=== PATIENT | male | born 1935 | race Caucasian/White ===

== ENCOUNTER 2016-08-26 09:50 | Observation (INO) | payer BC ==
--- NOTE | ~2016-08-26 | HP ---
History And Physical [address] [place]. [address] NAME: PIEDAD CARTWRIGHT : 37 STATUS : ADM Zach PAT#: [id number] AGE: 81 ADM/REG DATE : 08/26/16 MR#: [id number] REPORT SERV DATE: 08/26/16 DICTATED BY: AJAY LOYA DATE: 08/26/16 REPORT STATUS : Draft TRANSCRIBED BY: MODL DATE: 08/26/16 DATE OF ADMISSION: 08/26/2016 REASON FOR ADMISSION: Symptomatic bradycardia. PRIMARY PRODUCTION UNDERWRITER: Dr. Gen Massey. HISTORY OF PRESENT ILLNESS: Mr. Cartwright is a pleasant 81-year-old man with a history of CAD status post three-vessel CABG (2010), significant carotid artery disease, status post stenting (2013), mild ischemic cardiomyopathy (LVEF=40%), history of bradycardia, on metoprolol that had since resolved off metoprolol, paroxysmal atrial fibrillation (on Plavix monotherapy), and chronic left bundle-branch block, who presents to [facility] today with symptoms of increased fatigue as well as progressive limitation in his day-to-day activities over the past many weeks. Per him and his , this may have started several months ago, but has become so significant that he is now unable to walk even 100 feet without getting significantly dyspneic. When he is at rest, however, he has no symptoms in specific. He denies having any chest pains, pressures, dizziness, or loss of consciousness ever. He has been taking his medications which include only pravastatin and Plavix. His last dose of Plavix, however, was on Tuesday evening. He also is currently n.p.o. as he anticipated a procedure today. He otherwise has no complaints. ALLERGIES: DOPAMINE. PAST MEDICAL HISTORY: As above. SOCIAL HISTORY: The patient lives at home with his and is fully functional/independent under normal circumstances. He denies drinking alcohol, smoking, or doing drugs. FAMILY HISTORY: Negative for cardiovascular disease. REVIEW OF SYSTEMS: As above, all other systems otherwise negative. HOME MEDICATIONS: Plavix 75 mg p.o. daily, pravastatin 20 mg p.o at bedtime. PHYSICAL EXAMINATION: VITAL SIGNS: Blood pressure 130/54, pulse 30-40 (ventricular escape rhythm), temperature 97.0. GENERAL: Well developed, well nourished, no acute distress. NEURO: Awake, alert and oriented x3; no focal deficits, appropriate mood. HEENT: Moist mucous membranes, anicteric sclerae, no nasal discharge. NECK: No JVD, no carotid bruit. LUNGS: Clear to auscultation bilaterally, no wheezes, rales or rhonchi. CV: Bradycardic, regular, normal S1, S2. Distant heart sounds otherwise. ABD: Soft, non-tender, non-distended, no rebound or guarding. EXT: No pitting edema, normal distal pulses. History And Physical [address] [address] NAME: PIEDAD CARTWRIGHT : 36 STATUS : ADM Zach PAT#: [id number] AGE: 81 ADM/REG DATE : 08/26/16 MR#: [id number] REPORT SERV DATE: 08/26/16 DICTATED BY: AJAY LOYA DATE: 08/26/16 REPORT STATUS : Draft TRANSCRIBED BY: CAITLIN DATE: 08/26/16 SKIN: Warm, dry and intact; no rash. PERTINENT TEST FINDINGS: EKG with probable ventricular escape rhythm (has a baseline left bundle-branch block), with a rate of 37 beats per minute, no discernible P waves, and no obvious ischemic changes. Chest x-ray with right basilar atelectasis/consolidation. White blood cell count 7.8, hemoglobin 13, platelets 226. BNP 532, potassium 4.5, creatinine 1.8; up from 1.17, magnesium 2.1, troponin 0.06. IMPRESSION AND PLAN: Mr. Cartwright is a pleasant 81-year-old man with a history of coronary artery disease, status post coronary artery bypass graft, carotid artery stenosis, status post stenting, paroxysmal atrial fibrillation, and bradycardia on metoprolol that had resolved off metoprolol, who presents now with progressive fatigue as well as limitations in his day-to-day activities in the setting of ventricular escape rhythm in the 30s. Accordingly, I have the following recommendations by problem below: 1. Symptomatic bradycardia-I have consulted Electrophysiology to evaluate him for implantation of a permanent pacemaker today. He held his Plavix on Tuesday night and has been n.p.o., therefore he could get the procedure today if we can accommodate this. He is otherwise hemodynamically stable. I will have pads placed at the bedside should this become a need while here. He will otherwise be on telemetry monitoring. He is not on any fernanda blockers and I do not see any reversible causes of his bradycardic rhythm. This is likely progression of his known conduction disease. 2. PAF-on Plavix. Plavix currently on hold for symptomatic bradycardia. 3. Coronary artery disease, status post coronary artery bypass graft-without chest pains, pressures or anginal equivalents as far as I can tell, stable, continue statin as written. 4. Ischemic cardiomyopathy-mild as of 2011 echo. We will recheck echo this admission. Consider diuresis following pacemaker implantation. 5. Acute kidney injury-likely due to poor perfusion from bradycardia. We will follow renal parameters following pacemaker and potentially diurese him as per previous problem. VR/MODL Ajay Loya MD / [id number] CC: Ajay Loya MD
--- NOTE | ~2016-08-26 | CN ---
Consultation Report [facility] [address] [place]. [address] NAME: PIEDAD CARTWRIGHT : 37 STATUS : ADM Zach PAT#: [id number] AGE: 81 ADM/REG DATE : 08/26/16 MR#: [id number] REPORT SERV DATE: 08/26/16 DICTATED BY: DEE SINGH DATE: 08/26/16 REPORT STATUS : Draft TRANSCRIBED BY: MODL DATE: 08/26/16 EP CONSULT DATE OF CONSULTATION: 08/26/2016 INDICATION: Junctional rhythm, bradycardia. HISTORY OF PRESENT ILLNESS: The patient is an 81-year-old white male with a history of coronary artery disease and previous CAB in 2010 with carotid artery disease, status post stenting in 2013. He has ischemic cardiomyopathy with an LVEF of 40% chronically. He has had bradycardia in the past. Postoperatively, he had atrial fibrillation, but states he has been in sinus rhythm for the past several years. He has underlying left bundle branch block pattern. He states since the holidays he has had progressive fatigue. He has lower extremity edema, which has been more prominent over the past year. His and family state that he has been most of the time sitting in a chair. He rarely is able to get up and do any work around the house or on his land, although occasionally he will get out and [employer]. CURRENT HOME MEDICATIONS: Clopidogrel 75 a day and pravastatin 20 a day. ALLERGIES OR INTOLERANCES: Dopamine (nausea and vomiting). SOCIAL HISTORY: Lives at home with his . Negative for alcohol or tobacco use. FAMILY HISTORY: Negative for cardiac disease. PAST MEDICAL HISTORY/REVIEW OF SYSTEMS: History of hyperlipidemia, chronic left bundle branch block, paroxysmal atrial fibrillation with a ChadVasc score of 3. He has been assigned a diagnostic-category persistent atrial fibrillation with the most recent cardioversion attempted in August 2011, although it is not clear to me whether this means that he is in sinus rhythm most of the time, which would appear to be the case based on his last Holter in 2013 or whether he has progressed to more chronic atrial fibrillation. We will plan IV pacer placement. Whether or not he needs an atrial lead can be determined at the time of study. Risks and benefits have been discussed with the family. FAHAD Dee Singh M.D. Consultation Report [address]. [address] NAME: PIEDAD CARTWRIGHT : 37 STATUS : ADM Zach PAT#: [id number] AGE: 81 ADM/REG DATE : 08/26/16 MR#: [id number] REPORT SERV DATE: 08/26/16 DICTATED BY: DEE SINGH DATE: 08/26/16 REPORT STATUS : Draft TRANSCRIBED BY: MODL DATE: 08/26/16 / [id number] CC: MD Yoanna Kauffman M.D. [facility]
[~2016-08-26 09:50] MED LIST: ADVIL PO; AFRIN15 NAS; AMOXIL500 MG PO; ASA5GR PO; ASAB PO; BACTRONASA NAS; CIP5 PO; FLOVENT110 INH; LOP25 PO; MAALOX PO; MULTIPLE VIT PO; PLAVIX PO; PRAVAC PO; PROVHFA INH; VITAMIN D1000 UNI1 PO; VITC500 PO; VITE PO; XARELTO; ZOCOR20 PO
[2016-08-26 09:57] LABS: BASOPHILS 0.1 %; BASOPHILS ABSOLUTE 0.01 10/3/uL (0.0-0.16); EOSINOPHILS 2.2 %; EOSINOPHILS ABSOLUTE 0.17 10/3/uL (0.0-0.53); IMMATURE GRANULOCYTES 0.1 %; IMMATURE GRANULOCYTES ABSOLUTE 0.01 10/3/uL (0.0-0.11); LYMPHOCYTES 18.6 %; LYMPHOCYTES ABSOLUTE 1.45 10/3/uL (0.67-4.30); MEAN CORPUS HGB CONC 33.4 g/dL (32.0-36.0); MEAN CORPUSCULAR HEMOGLOB 29.8 pg (26.0-34.0); MEAN CORPUSCULAR VOLUME 89.2 fL (80-100); MEAN PLATELET VOLUME 8.8 fL (9.2-13.0); MONOCYTES 13.3 %; MONOCYTES ABSOLUTE 1.04 10/3/uL (0.21-1.20); NEUTROPHILS 65.7 %; NEUTROPHILS ABSOLUTE 5.12 10/3/uL (2.02-8.40); PLATELET COUNT 226 10/3/uL (150-400); RBC DISTRIBUTION WIDTH 14.4 % (12.0-16.0); RED CELL COUNT 4.36 10/6/uL (4.7-6.1); WHITE BLOOD CELLS 7.8 10/3/uL (4.5-10.5)
[2016-08-26 09:59] LABS: HEMATOCRIT 38.9 % (40.0-51.0); MANUAL DIFF NO %
[2016-08-26 10:05] LABS: INTERNATIONAL NORMAL RATI 1.5 UNITS (-)
[2016-08-26 10:06] LABS: PARTIAL THROMBO TIME 34.6 SEC (22.5-37.2)
[2016-08-26 10:14] LABS: A/G RATIO 0.8 (0.7-1.9); ALBUMIN 3.7 G/DL (3.5-5.0); BUN (BLOOD UREA NITROGEN) 34 MG/DL (6-23); CHLORIDE, SERUM 102 MMOL/L (96-112); CO2 (CARBON DIOXIDE) 26 MMOL/L (24-34); GLOBULIN 4.7 G/DL (2.5-4.1); POTASSIUM, SERUM 4.5 MMOL/L (3.5-5.3); SGPT(ALT) 21 U/L (5-65); SODIUM, SERUM 137 MMOL/L (135-148); TOTAL PROTEIN 8.4 G/DL (6.0-8.5)
[2016-08-26 10:16] LABS: CREATININE 1.81 MG/DL (0.70-1.30); GFR AFRICAN AMERICAN 40 ML/MIN (>=60); GFR NON AFRICAN AMERICAN 35 ML/MIN (>=60); GLUCOSE, SERUM 83 MG/DL (60-99)
[2016-08-26 10:17] LABS: ALKALINE PHOSPHATASE 121 U/L (45-117); SGOT(AST) 29 U/L (5-40); TOTAL BILIRUBIN 2.1 MG/DL (0-1.2); TROPONIN I 0.06 NG/ML (<0.05)
[2016-08-27 05:13] LABS: CALCIUM, SERUM 8.8 MG/DL (8.5-10.4); CHLORIDE, SERUM 107 MMOL/L (96-112); CREATININE 1.55 MG/DL (0.70-1.30); GFR AFRICAN AMERICAN 48 ML/MIN (>=60); GFR NON AFRICAN AMERICAN 42 ML/MIN (>=60); GLUCOSE, SERUM 84 MG/DL (60-99); POTASSIUM, SERUM 4.2 MMOL/L (3.5-5.3); SODIUM, SERUM 140 MMOL/L (135-148)
[2016-08-27 05:17] LABS: BUN (BLOOD UREA NITROGEN) 38 MG/DL (6-23); CO2 (CARBON DIOXIDE) 20 MMOL/L (24-34)
[2016-08-27 05:31] LABS: BASOPHILS 0.3 %; BASOPHILS ABSOLUTE 0.02 10/3/uL (0.0-0.16); EOSINOPHILS 2.2 %; EOSINOPHILS ABSOLUTE 0.14 10/3/uL (0.0-0.53); HEMATOCRIT 35.9 % (40.0-51.0); HEMOGLOBIN 12.1 g/dL (13.6-17.8); IMMATURE GRANULOCYTES 0.2 %; IMMATURE GRANULOCYTES ABSOLUTE 0.01 10/3/uL (0.0-0.11); LYMPHOCYTES 26.9 %; LYMPHOCYTES ABSOLUTE 1.75 10/3/uL (0.67-4.30); MEAN CORPUS HGB CONC 33.7 g/dL (32.0-36.0); MEAN CORPUSCULAR HEMOGLOB 29.7 pg (26.0-34.0); MEAN PLATELET VOLUME 8.8 fL (9.2-13.0); MONOCYTES 9.2 %; NEUTROPHILS 61.2 %; NEUTROPHILS ABSOLUTE 3.98 10/3/uL (2.02-8.40); PLATELET COUNT 206 10/3/uL (150-400); RBC DISTRIBUTION WIDTH 14.6 % (12.0-16.0); RED CELL COUNT 4.08 10/6/uL (4.7-6.1); WHITE BLOOD CELLS 6.5 10/3/uL (4.5-10.5)
[2016-08-27 05:35] LABS: MANUAL DIFF NO %
[2016-08-27] MEDS ORDERED: COREG3 PO (14:51)
[2016-10-26] MEDS ORDERED: ASAB (13:14)
== END 2016-08-27 17:43 | disposition home or self-care (01) ==
LOC: ER 09:50 → CDU1 11:45 → SSU1 12:35
PROVIDERS: Emergency Medicine; Internal Medicine Clinical Cardiac Electrophysiology
PROC: 0JH607Z Insertion of Cardiac Resynchronization Pacemaker Pulse Generator into Chest Subcutaneous Tissue and Fascia, Open Approach (ICD-10-PCS; principal; 2016-08-27)
PROC: 02HL3JZ Insertion of Pacemaker Lead into Left Ventricle, Percutaneous Approach (ICD-10-PCS; 2016-08-27)
DX: I44.2 Atrioventricular block, complete (principal); I48.2 Chronic atrial fibrillation; I44.7 Left bundle-branch block, unspecified; I25.10 Atherosclerotic heart disease of native coronary artery without angina pectoris; I25.5 Ischemic cardiomyopathy; N17.9 Acute kidney failure, unspecified; E78.5 Hyperlipidemia, unspecified; Z95.1 Presence of aortocoronary bypass graft; Z95.820 Peripheral vascular angioplasty status with implants and grafts; Z85.46 Personal history of malignant neoplasm of prostate; Z88.8 Allergy status to other drugs, medicaments and biological substances; Z79.02 Long term (current) use of antithrombotics/antiplatelets; Z79.899 Other long term (current) drug therapy
CPT/HCPCS: 33207; 33225; 71010; 80048; 80053; 83735; 83880; 84484; 85025; 85610; 85730; 93005; 93306; 96374; 99285; A9270-GY; C1730; C1769; C1887; C1892; C1898; C1900; C2621; G0378; J0690; J1940; J3010

== ENCOUNTER 2016-11-01 06:59 | Day surgery (SDC) | payer BC ==
[2016-10-28 10:01] LABS: HEMOGLOBIN 11.4 g/dL (13.6-17.8)
[2016-10-28 10:07] LABS: CHLORIDE, SERUM 106 MMOL/L (96-112); CREATININE 1.49 MG/DL (0.70-1.30); GFR AFRICAN AMERICAN 51 ML/MIN (>=60); GFR NON AFRICAN AMERICAN 44 ML/MIN (>=60); POTASSIUM, SERUM 4.3 MMOL/L (3.5-5.3); SODIUM, SERUM 140 MMOL/L (135-148)
[2016-10-28 10:08] LABS: BUN (BLOOD UREA NITROGEN) 25 MG/DL (6-23); CO2 (CARBON DIOXIDE) 32 MMOL/L (24-34); GLUCOSE, SERUM 122 MG/DL (60-99)
--- NOTE | ~2016-11-01 | OP ---
Record Of Operation [facility] [address] [place]. [address] NAME: PIEDAD CARTWRIGHT : 37 STATUS : REG [facility] PAT#: [id number] AGE: 81 ADM/REG DATE : 11/01/16 MR#: [id number] REPORT SERV DATE: 11/01/16 DICTATED BY: Bonilla ARRIAGA DATE: 11/01/16 REPORT STATUS : Draft TRANSCRIBED BY: MODL DATE: 11/01/16 DATE OF PROCEDURE: 11/01/2016 PREOPERATIVE DIAGNOSIS: Gross hematuria with indeterminate bladder lesion. POSTOPERATIVE DIAGNOSIS: Gross hematuria with indeterminate bladder lesion. PROCEDURE: Cystoscopy, multiple bladder biopsies (#6), fulguration, examination under anesthesia. SURGEON: Bonilla Arriaga M.D. ANESTHESIA: General endotracheal. COMPLICATIONS: None. DRAINS: 20-Portuguese two-way Blackburn catheter. BRIEF HISTORY: Mr. Cartwright is an 81-year-old white male with a history of prostate cancer status post radical prostatectomy in 2002 with a detectable PSA. He never had postoperative radiation. He presented recently with gross hematuria and had a normal upper tract with irregular prominence of the urinary bladder wall. In the office, he had multiple vascular type lesions throughout his bladder of indeterminate etiology. It was again confirmed that he never had radiation. He is here for bladder biopsies. The risks of bleeding, infection, anesthesia, injury to adjacent organs, inability to detect cancer, need for postoperative catheter, etc, were all discussed. There were no unanswered questions. DESCRIPTION OF PROCEDURE: Under excellent general anesthesia, the patient was prepped and draped in standard lithotomy position. Examination revealed an empty prostatic fossa with no evidence of residual nodularity or recurrence. He had normal uncircumcised penis. Cystoscopy was performed with 30- and 70-degree lens and revealed a normal anterior urethra. The posterior urethra showed previous prostate removal with no obvious local recurrence. Inspection of the bladder revealed normal orifices bilaterally. Effluxing clear urine with multiple vascular lesions noted throughout the bladder. There was no magi tumor present. I used the biopsy forceps and took biopsies of these lesions throughout the bladder, one from the right bladder wall, one from the posterior bladder wall, one from the left bladder wall, one from the bladder dome, one from the bladder base, and the 2nd one just right above the right ureteral orifice. The Bugbee electrode was then used to fulgurate all these areas and the case was terminated. I placed a 20-Portuguese two-way Blackburn catheter and planned to discharge Mr. Cartwright as an outpatient with the following instructions. DISCHARGE INSTRUCTIONS: 1. Home today. 2. Remove catheter in the morning, either at home or in my office. 3. Follow up in one week to review pathology. 4. Pyridium 200 mg one p.o. t.i.d. p.r.n. bladder pain, #15. Record Of Operation [address] [place] [place]. [address] NAME: PIEDAD CARTWRIGHT : 37 STATUS : REG [facility] PAT#: [id number] AGE: 81 ADM/REG DATE : 11/01/16 MR#: [id number] REPORT SERV DATE: 11/01/16 DICTATED BY: Bonilla ARRIAGA DATE: 11/01/16 REPORT STATUS : Draft TRANSCRIBED BY: CAITLIN DATE: 11/01/16 SAIRA/CAITLIN Bonilla Arriaga M.D. / [id number] CC: Srikanth Stevenson M.D.
[~2016-11-01 06:59] MED LIST changes: +ASAB; +COREG3 PO
== END 2016-11-01 16:49 | disposition home or self-care (01) ==
LOC: SDC 06:59
PROC: 0TBB8ZX Excision of Bladder, Via Natural or Artificial Opening Endoscopic, Diagnostic (ICD-10-PCS; 2016-11-01)
PROC: 0T5B8ZZ Destruction of Bladder, Via Natural or Artificial Opening Endoscopic (ICD-10-PCS; principal; 2016-11-01 08:45)
DX: E85.4 Organ-limited amyloidosis (principal); R31.0 Gross hematuria; N18.3 Chronic kidney disease, stage 3 (moderate); I25.10 Atherosclerotic heart disease of native coronary artery without angina pectoris; I48.91 Unspecified atrial fibrillation; I50.9 Heart failure, unspecified; K21.9 Gastro-esophageal reflux disease without esophagitis; Z95.1 Presence of aortocoronary bypass graft; Z95.820 Peripheral vascular angioplasty status with implants and grafts; Z85.46 Personal history of malignant neoplasm of prostate; Z95.0 Presence of cardiac pacemaker; Z88.8 Allergy status to other drugs, medicaments and biological substances; Z79.82 Long term (current) use of aspirin; Z79.02 Long term (current) use of antithrombotics/antiplatelets; Z79.899 Other long term (current) drug therapy; E78.00 Pure hypercholesterolemia, unspecified; I25.2 Old myocardial infarction; H26.9 Unspecified cataract; I44.7 Left bundle-branch block, unspecified; Z98.890 Other specified postprocedural states; M19.90 Unspecified osteoarthritis, unspecified site; Z87.81 Personal history of (healed) traumatic fracture; Z90.79 Acquired absence of other genital organ(s)
CPT/HCPCS: 80048; 85014; 85018; 88305; 88313; 93005; J0330; J2250; J2405; J3010